=== PATIENT | male | born 1990 | race Caucasian/White ===

== ENCOUNTER 2016-05-05 18:18 | Emergency (ER) | payer MEDICAID ==
[2016-05-05] MEDS ORDERED: KETOROLAC TROME10 MG PO (18:29)
== END 2016-05-05 18:46 | disposition home or self-care (01) ==
LOC: ED 18:18
DX: S50.01XA Contusion of right elbow, initial encounter (principal); S50.02XA Contusion of left elbow, initial encounter; F17.210 Nicotine dependence, cigarettes, uncomplicated; W22.09XA Striking against other stationary object, initial encounter; Y92.018 Other place in single-family (private) house as the place of occurrence of the external cause
CPT/HCPCS: J1885

== ENCOUNTER 2016-06-01 05:03 | Emergency (ER) | payer MEDICAID ==
[~2016-06-01 05:03] MED LIST: KETOROLAC TROME10 MG PO
[2016-06-01] MEDS ORDERED: BACTRIM DS TAB1 EACH PO (07:46)
== END 2016-06-01 07:50 | disposition home or self-care (01) ==
LOC: ED 05:03
DX: L03.211 Cellulitis of face (principal); T78.40XA Allergy, unspecified, initial encounter; F11.90 Opioid use, unspecified, uncomplicated; F17.210 Nicotine dependence, cigarettes, uncomplicated
CPT/HCPCS: J0171; J2930; J7030